=== PATIENT | female | born 1955 | race Caucasian/White ===

== ENCOUNTER → 2017-02-14 | Outpatient (CLI) | payer OTHER, MEDICARE ==
[~2017-02-14] MED LIST: ABILIFY5 MG PO; ALDACTONE100 MG PO; CELEXA40 MG PO; CENTRUM WOMEN1 EACH PO; FLEXERIL10 MG PO; FOLIC ACID1 MG PO; KLOR-CON 88 MEQ PO; LASIX20 MG PO; LINZESS145 MCG PO; NEURONTIN300 MG PO; OXYCODONE HCL10 MG PO; OXYCONTIN10 MG PO; PRILOSEC20 MG PO; SYNTHROID125 MCG PO; TEMAZEPAM30 MG PO; TRAZODONE HCL50 MG PO; VALTREX50 MG/ML PO; VESICARE10 MG PO; VITAMIN B12-FO1 EACH PO; VITAMIN D-3 401 EACH PO; WELLBUTRIN SR200 MG PO; [UNRECOGNIZED DRUG - OTHER] PO
== END | disposition home or self-care (01) ==
LOC: OPR 08:00 → EDSTATUS 10:00
PROC: BB241ZZ Computerized Tomography (CT Scan) of Bilateral Lungs using Low Osmolar Contrast (ICD-10-PCS; principal; 2017-02-14)
PROC: 0BDC4ZX Extraction of Right Upper Lung Lobe, Percutaneous Endoscopic Approach, Diagnostic (ICD-10-PCS; principal; 2017-02-14)
DX: C34.11 Malignant neoplasm of upper lobe, right bronchus or lung (principal); K74.60 Unspecified cirrhosis of liver; F17.200 Nicotine dependence, unspecified, uncomplicated; Z88.0 Allergy status to penicillin; Z80.1 Family history of malignant neoplasm of trachea, bronchus and lung; Z80.8 Family history of malignant neoplasm of other organs or systems
CPT/HCPCS: 71010; 77012; 88305; 88341 TC; 88342 TC; J3010

== ENCOUNTER 2017-04-22 10:49 | Emergency (ER) | payer OTHER, MEDICARE ==
[~2017-04-22] VITALS: Ht 154.9 cm; Wt 61.0 kg
[2017-04-22 13:23] LABS: BASOPHIL (%) 0.5 % (0-1); EOSINOPHIL (%) 3.8 % (0-5); EOSINOPHIL COUNT 0.2 K/uL (0-0.3); HEMATOCRIT 39.9 % (36.0-46.0); HEMOGLOBIN 13.3 G/DL (11.9-15.5); IMMATURE GRANULOCYTE (%) 0.3 % (0.0-0.7); LYMPHOCYTE (%) 23.1 % (15-42); LYMPHOCYTE COUNT 0.9 K/uL (1.0-2.8); MCH 30.2 PG (29.0-34.0); MCHC 33.3 G/DL (30.0-36.0); MCV 90.7 FL (83-99); MONOCYTE (%) 13.8 % (3-12); MONOCYTE COUNT 0.6 K/uL (0-0.8); NEUTROPHIL (%) 58.5 % (45-76); NEUTROPHIL COUNT 2.3 K/uL (1.8-6.4); PLATELET COUNT 135 K/uL (156-360); RBC DIS.WIDTH-CV 15.4 % (11.8-14.6); RBC DIS.WIDTH-SD 51.1 % (39-53)
[2017-04-22 13:33] LABS: ALBUMIN 3.6 g/dL (3.2-4.8); CHLORIDE 106 mEq/L (99-109); POTASSIUM 3.9 mEq/L (3.7-5.4); SODIUM 138 mEq/L (136-147)
[2017-04-22 13:36] LABS: GLUCOSE 90 mg/dL (70-99); TOTAL PROTEIN 6.7 g/dL (6.4-8.3)
[2017-04-22 13:37] LABS: TOTAL BILIRUBIN 0.7 mg/dL (0.0-1.0)
[2017-04-22 13:38] LABS: SERUM ETHYL ALCOHOL < 10 mg/dL
[2017-04-22 13:39] LABS: ALKALINE PHOSPHATASE 94 IU/L (3-129); CREATININE 0.7 mg/dL (0.6-1.3); GFR ESTIMATE (CALCULATED) > 59 mL/min/
[2017-04-22 13:40] LABS: UREA NITROGEN (BUN) 17 mg/dL (9-23)
[2017-04-22 13:41] LABS: AST (GOT) 59 IU/L (2-34)
[2017-04-22 13:42] LABS: ALT (GPT) 63 IU/L (3-49)
[2017-04-22 14:00] LABS: TROP-I INTERPRETATION NEGATIVE; TROPONIN-I < 0.01 ng/mL (0.0-0.30)
[2017-04-22 15:11] LABS: APPEARANCE SL.HAZY ((CLEAR)); BILIRUBIN SMALL; BLOOD NEGATIVE; GLUCOSE (STRIP) NEGATIVE; KETONES 5; LEUKOCYTES MODERATE; NITRITE NEGATIVE; PROTEIN (STRIP) 30; SPECIFIC GRAVITY 1.025 (1.000-1.030)
[2017-04-22 15:18] LABS: BACTERIA RARE /HPF; COLOR AMBER ((YELLOW)); EPITHELIAL CELLS 1+ /HPF; MUCUS 1+ /LPF; RED BLOOD CELLS 0-5 /HPF (0-5); UCUL ADDED? YES; WHITE BLOOD CELLS 20-30 /HPF (0-5)
[2017-04-22 15:21] LABS: AMPHETAMINE NEGATIVE (500 ng/mL); BARBITURATES NEGATIVE (200 ng/mL); BENZODIAZEPINES NEGATIVE (150 ng/mL); BUPRENORPHINE NEGATIVE (10 ng/mL); COCAINE NEGATIVE (150 ng/mL); METHADONE NEGATIVE (200 ng/mL); METHAMPHETAMINE NEGATIVE (500 ng/mL); OPIATES (MORPHINE) NEGATIVE (100 ng/mL); OXYCODONE PRESUMPTIVE POSITIVE (100 ng/mL); PHENCYCLIDINE NEGATIVE (25 ng/mL); PROPOXYPHENE NEGATIVE (300 ng/mL); THC CANNABINOIDS PRESUMPTIVE POSITIVE (50 ng/mL); TRICYCLIC ANTIDEPRESSANTS NEGATIVE (300 ng/mL)
[2017-04-22] MEDS ORDERED: BACTRIM,SEPT1 TABLET PO (16:44)
[2017-04-22 17:44] VITALS: BP 147/88
== END 2017-04-22 17:46 | disposition home or self-care (01) ==
LOC: EME 10:49
PROVIDERS: Emergency Medicine
DX: S09.90XA Unspecified injury of head, initial encounter (principal); R42 Dizziness and giddiness; N39.0 Urinary tract infection, site not specified; W10.9XXA Fall (on) (from) unspecified stairs and steps, initial encounter; M79.641 Pain in right hand; R53.1 Weakness; R41.0 Disorientation, unspecified; J44.9 Chronic obstructive pulmonary disease, unspecified; I10 Essential (primary) hypertension; E03.9 Hypothyroidism, unspecified; F32.9 Major depressive disorder, single episode, unspecified; G89.29 Other chronic pain; Z85.118 Personal history of other malignant neoplasm of bronchus and lung; F17.200 Nicotine dependence, unspecified, uncomplicated; Z96.612 Presence of left artificial shoulder joint; Z88.0 Allergy status to penicillin
CPT/HCPCS: 70450; 70551; 73130; 80053; 81003; 84484; 84999; 85025; 87086 GA; 93005; 99281; 99284; G0480

== ENCOUNTER 2017-06-20 14:48 | Inpatient (IN) | payer OTHER, MEDICARE ==
[~2017-06-20] VITALS: Ht 157.5 cm; Wt 63.7 kg
[~2017-06-20 14:48] MED LIST changes: -ALDACTONE100 MG PO; +ALDACTONE50 MG PO; +BACTRIM,SEPT1 TABLET PO; +CELEXA20 MG PO; -CELEXA40 MG PO
[2017-06-20 15:30] LABS: BASOPHIL (%) 0.5 % (0-1); EOSINOPHIL (%) 2.6 % (0-5); EOSINOPHIL COUNT 0.2 K/uL (0-0.3); HEMATOCRIT 30.2 % (36.0-46.0); HEMOGLOBIN 10.3 G/DL (11.9-15.5); IMMATURE GRANULOCYTE (%) 1.4 % (0.0-0.7); LYMPHOCYTE (%) 7.7 % (15-42); LYMPHOCYTE COUNT 0.7 K/uL (1.0-2.8); MCH 31.3 PG (29.0-34.0); MCHC 34.1 G/DL (30.0-36.0); MCV 91.8 FL (83-99); MONOCYTE (%) 15.2 % (3-12); MONOCYTE COUNT 1.3 K/uL (0-0.8); NEUTROPHIL (%) 72.6 % (45-76); NEUTROPHIL COUNT 6.3 K/uL (1.8-6.4); RBC DIS.WIDTH-CV 14.7 % (11.8-14.6); RBC DIS.WIDTH-SD 49.6 % (39-53); RED BLOOD COUNT 3.29 M/uL (3.80-5.20); WHITE BLOOD COUNT 8.7 K/uL (4.1-10.2)
[2017-06-20 15:31] LABS: PLATELET COUNT 143 K/uL (156-360)
[2017-06-20 15:41] LABS: ALBUMIN 3.1 g/dL (3.2-4.8); CHLORIDE 94 mEq/L (99-109); POTASSIUM 4.3 mEq/L (3.7-5.4)
[2017-06-20 15:43] LABS: GLUCOSE 93 mg/dL (70-99)
[2017-06-20 15:45] LABS: TOTAL BILIRUBIN 1.1 mg/dL (0.0-1.0)
[2017-06-20 15:47] LABS: ALKALINE PHOSPHATASE 105 IU/L (3-129)
[2017-06-20 15:48] LABS: UREA NITROGEN (BUN) 12 mg/dL (9-23)
[2017-06-20 15:49] LABS: AST (GOT) 49 IU/L (2-34)
[2017-06-20 15:50] LABS: ALT (GPT) 33 IU/L (3-49)
[2017-06-20 15:57] LABS: CREATININE 0.9 mg/dL (0.6-1.3); GFR ESTIMATE (CALCULATED) > 59 mL/min/; SODIUM 126 mEq/L (136-147)
[2017-06-20 16:10] LABS: APPEARANCE CLEAR ((CLEAR)); BILIRUBIN NEGATIVE; BLOOD NEGATIVE; COLOR YELLOW ((YELLOW)); GLUCOSE (STRIP) NEGATIVE; KETONES NEGATIVE; LEUKOCYTES NEGATIVE; NITRITE NEGATIVE; PROTEIN (STRIP) NEGATIVE; SPECIFIC GRAVITY 1.009 (1.000-1.030); UCUL ADDED? NO; UROBILINOGEN 0.2 MG/DL (0.2-1.0)
[2017-06-20] MEDS ORDERED: DULCOLAX10 MG PR (17:33)
[2017-06-20] MEDS ORDERED: ATARAX,VISTARIL25 MG PO (17:34)
[2017-06-20] MEDS ORDERED: ADVIL,NUPRIN,M200 MG PO (17:35)
[2017-06-20] MEDS ORDERED: CITRATE OF MAG296 ML PO (17:36)
[2017-06-20] MEDS ORDERED: PHILLIPS'400 MG/5 M PO (17:37)
[2017-06-20] MEDS ORDERED: TIZANIDINE HCL4 MG PO (17:38)
[2017-06-20] MEDS ORDERED: CHANTIX0.5 MG PO (17:39)
[2017-06-20] MEDS ORDERED: CYMBALTA30 MG PO (17:39)
[2017-06-20] MEDS ORDERED: IRON325 M1 PO (17:40)
[2017-06-20] MEDS ORDERED: ENULOSE10 GM/15 M PO (17:42)
[2017-06-20] MEDS ORDERED: SYNTHROID150 MCG PO (17:44)
[2017-06-20] MEDS ORDERED: VOLTAREN-XR100 MG PO (17:47)
[2017-06-20] MEDS ORDERED: ASCORBIC ACID500 M3 PO (17:47)
[2017-06-20] MEDS ORDERED: OXYCODONE HCL15 MG PO ×2 (17:49→17:50)
[2017-06-20 20:40] VITALS: BP 125/59
[2017-06-20] MEDS ORDERED: TYLENOL REGULA325 MG PO (21:57)
[2017-06-20] MEDS ORDERED: NICOTINE PATCH1 EAC1 TD (22:13)
[2017-06-20 23:44] LABS: CHLORIDE 100 mEq/L (99-109); POTASSIUM 4.3 mEq/L (3.7-5.4); SODIUM 129 mEq/L (136-147)
[2017-06-20 23:46] LABS: GLUCOSE 82 mg/dL (70-99)
[2017-06-20 23:49] VITALS: BP 98/50
[2017-06-20 23:50] LABS: CREATININE 0.7 mg/dL (0.6-1.3); GFR ESTIMATE (CALCULATED) > 59 mL/min/; UREA NITROGEN (BUN) 13 mg/dL (9-23)
[2017-06-21 03:47] VITALS: BP 122/64
[2017-06-21 06:08] LABS: HEMATOCRIT 30.2 % (36.0-46.0); MCHC 33.1 G/DL (30.0-36.0); MCV 93.5 FL (83-99); PLATELET COUNT 124 K/uL (156-360); RBC DIS.WIDTH-CV 14.8 % (11.8-14.6); RBC DIS.WIDTH-SD 51.3 % (39-53); RED BLOOD COUNT 3.23 M/uL (3.80-5.20); WHITE BLOOD COUNT 5.9 K/uL (4.1-10.2)
[2017-06-21 06:33] LABS: CHLORIDE 102 MEQ/L (99-109); CREATININE 0.5 MG/DL (0.6-1.3); GFR ESTIMATE (CALCULATED) > 59 mL/min/; GLUCOSE 81 mg/dL (70-99); POTASSIUM 4.3 MEQ/L (3.7-5.4); SODIUM 132 MEQ/L (136-147); UREA NITROGEN (BUN) 10 mg/dL (9-23)
[2017-06-21 09:00] VITALS: BP 170/83
[2017-06-21 12:00] VITALS: BP 151/72
[2017-06-21 17:30] VITALS: BP 141/63
[2017-06-21 20:48] VITALS: BP 146/74; BP 147/91
[2017-06-22 04:27] VITALS: BP 111/59
[2017-06-22 04:51] LABS: HEMATOCRIT 29.4 % (36.0-46.0); HEMOGLOBIN 10.1 G/DL (11.9-15.5); MCH 31.5 PG (29.0-34.0); MCHC 34.4 G/DL (30.0-36.0); MCV 91.6 FL (83-99); PLATELET COUNT 140 K/uL (156-360); RBC DIS.WIDTH-CV 14.9 % (11.8-14.6); RBC DIS.WIDTH-SD 50.3 % (39-53); RED BLOOD COUNT 3.21 M/uL (3.80-5.20); WHITE BLOOD COUNT 6.2 K/uL (4.1-10.2)
[2017-06-22 05:03] LABS: CHLORIDE 100 mEq/L (99-109); POTASSIUM 4.4 mEq/L (3.7-5.4); SODIUM 132 mEq/L (136-147)
[2017-06-22 05:04] LABS: GLUCOSE 91 mg/dL (70-99)
[2017-06-22 05:08] LABS: CREATININE 0.5 mg/dL (0.6-1.3); GFR ESTIMATE (CALCULATED) > 59 mL/min/
[2017-06-22 05:09] LABS: UREA NITROGEN (BUN) 7 mg/dL (9-23)
[2017-06-22 12:24] VITALS: BP 115/59
[2017-06-22 16:05] VITALS: BP 139/67
[2017-06-22 19:30] VITALS: BP 132/68
[2017-06-23 00:09] VITALS: BP 148/73
[2017-06-23 04:23] VITALS: BP 146/77
[2017-06-23 05:46] LABS: HEMATOCRIT 31.5 % (36.0-46.0); HEMOGLOBIN 10.4 G/DL (11.9-15.5); MCH 30.7 PG (29.0-34.0); MCV 92.9 FL (83-99); PLATELET COUNT 154 K/uL (156-360); RBC DIS.WIDTH-CV 14.6 % (11.8-14.6); RBC DIS.WIDTH-SD 50.2 % (39-53); RED BLOOD COUNT 3.39 M/uL (3.80-5.20); WHITE BLOOD COUNT 4.4 K/uL (4.1-10.2)
[2017-06-23 06:09] LABS: CHLORIDE 102 MEQ/L (99-109); CREATININE 0.4 MG/DL (0.6-1.3); GFR ESTIMATE (CALCULATED) > 59 mL/min/; GLUCOSE 87 mg/dL (70-99); POTASSIUM 4.6 MEQ/L (3.7-5.4); SODIUM 137 MEQ/L (136-147); UREA NITROGEN (BUN) 6 mg/dL (9-23)
[2017-06-23 07:45] VITALS: BP 142/67
[2017-06-23 12:19] VITALS: BP 114/62
[2017-06-23 20:00] VITALS: BP 108/65
[2017-06-23 23:55] VITALS: BP 124/71
[2017-06-24 07:00] VITALS: BP 109/55
[2017-06-24 11:58] VITALS: BP 150/73
[2017-06-24 14:50] VITALS: BP 164/89
[2017-06-24 19:15] VITALS: BP 116/71
[2017-06-24 22:45] VITALS: BP 93/53
[2017-06-25 03:30] VITALS: BP 120/63
[2017-06-25 05:17] LABS: HEMATOCRIT 30.9 % (36.0-46.0); HEMOGLOBIN 10.2 G/DL (11.9-15.5); MCH 30.4 PG (29.0-34.0); MCV 92.2 FL (83-99); PLATELET COUNT 165 K/uL (156-360); RBC DIS.WIDTH-CV 14.6 % (11.8-14.6); RBC DIS.WIDTH-SD 49.4 % (39-53); RED BLOOD COUNT 3.35 M/uL (3.80-5.20); WHITE BLOOD COUNT 4.9 K/uL (4.1-10.2)
[2017-06-25 05:41] LABS: CHLORIDE 100 MEQ/L (99-109); CREATININE 0.5 MG/DL (0.6-1.3); GFR ESTIMATE (CALCULATED) > 59 mL/min/; GLUCOSE 108 mg/dL (70-99); POTASSIUM 4.1 MEQ/L (3.7-5.4); SODIUM 135 MEQ/L (136-147); UREA NITROGEN (BUN) 4 mg/dL (9-23)
[2017-06-25 07:12] VITALS: BP 120/67
[2017-06-25 11:13] VITALS: BP 99/62
[2017-06-25] MEDS ORDERED: LEVOFLOXACIN750 MG PO (14:41)
[2017-06-25] MEDS ORDERED: OXYCODONE HCL5 MG PO (14:45)
[2017-06-25 16:11] VITALS: BP 117/69
== END 2017-06-25 18:10 | DRG 190 ==
LOC: EME 14:48 → 4EAST 17:28 → EDOF 17:28 → ENRESERV 17:36 → 4EAST 20:42 → CANRESERV 06-24 14:41 → ENRESERV 06-24 14:41 → 4EAST 06-25 18:10
PROVIDERS: Emergency Medicine; Family Medicine; Internal Medicine
DX: J44.0 Chronic obstructive pulmonary disease with (acute) lower respiratory infection (principal); J18.9 Pneumonia, unspecified organism; Y95 Nosocomial condition; N39.0 Urinary tract infection, site not specified; E87.1 Hypo-osmolality and hyponatremia; E86.0 Dehydration; E03.9 Hypothyroidism, unspecified; F32.9 Major depressive disorder, single episode, unspecified; F41.9 Anxiety disorder, unspecified; G62.9 Polyneuropathy, unspecified; G89.4 Chronic pain syndrome; I10 Essential (primary) hypertension; K21.9 Gastro-esophageal reflux disease without esophagitis; K59.09 Other constipation; D64.9 Anemia, unspecified; Z96.612 Presence of left artificial shoulder joint; F17.210 Nicotine dependence, cigarettes, uncomplicated; Z85.118 Personal history of other malignant neoplasm of bronchus and lung; Z86.11 Personal history of tuberculosis; Z98.1 Arthrodesis status; Z88.0 Allergy status to penicillin; Z79.891 Long term (current) use of opiate analgesic; S99.911D Unspecified injury of right ankle, subsequent encounter; X58.XXXD Exposure to other specified factors, subsequent encounter
CPT/HCPCS: 70450; 71045; 71046; 72125; 73610; 80048; 80048 91; 80053; 80202; 81003; 82140; 83605; 85025; 85027; 87040; 87502; 94640; 94640 76; 94799; 97530 GP; 99202; 99281; 99285; J0692; J1644; J3370; J7030